=== PATIENT | male | born 1950 | race Caucasian/White ===

== ENCOUNTER → 2018-11-05 | Day surgery (SDC) | payer MEDICARE ==
[2018-10-28 09:33] VITALS: BMI 33.7
[~2018-11-05] MED LIST: BUPIVACAINE (PF) 0.5% 30 ML VIAL SQ ONE; LACTATED RINGERS 1,000 ML IV SCH; LIDOCAINE 1% 20 ML VIAL (10MG/ML) FOR IV START INTRADERMA PRN; LIDOCAINE 1% INJ 10MG/ML (20 ML MDV) ONE; LIDOCAINE 2% INJ 20 MG/ML SQ ONE; MIDAZOLAM 2 MG/2 ML VIAL ONE; PROPOFOL 10 MG/ML 20 ML VIAL IV ONE; ceFAZolin IN SWFI 2 GM/20 ML SYRINGE IVP ONE; fentaNYL (PF) 50 MCG/ML 2 ML AMP ONE
[2018-11-05 06:48] VITALS: TEMP 97.8
[2018-11-05 08:07] VITALS: RESP 18
[2018-11-05 08:35] VITALS: BP 146/87; PULSE 60
--- NOTE | 2018-11-05 13:33 | OP ---
OPERATIVE REPORT DATE OF SURGERY: 11/05/2018 SURGEON: Leland Blake DO. PREOPERATIVE DIAGNOSIS: Left carpal tunnel syndrome. POSTOPERATIVE DIAGNOSIS: Left carpal tunnel syndrome. PROCEDURE: Left carpal tunnel release. DESCRIPTION OF PROCEDURE: The patient was taken to the operative suite where a sedation was administered by the Department of Anesthesia. I then performed a local injection along the line of the incision with a combination of Marcaine and Xylocaine both without epinephrine. The hand was then prepped and draped in the usual manner. The arm was elevated, exsanguinated and the cuff was inflated to 250 mm of mercury. A longitudinal incision was made along the ring finger ray distal to the wrist crease. Dissection was taken through the skin and subcutaneous tissue, initially sharp through the skin and then blunt through the subcutaneous tissue to ensure protection of any potential terminal transverse branches of the palmar cutaneous nerve. The palmar fascia was then incised under direct vision longitudinally exposing the transverse carpal ligament. The transverse carpal ligament also was incised under direct vision. The dissection was then continued proximally beneath the skin under direct vision to release the distal forearm fascia. The median nerve was then reflected free of tenosynovium to ensure no adhesions. The tourniquet was then released. The wound was then irrigated and the skin was closed with a running 5-0 nylon suture. A soft bulky dressing was applied including a volar plaster splint holding the wrist in a neutral slightly extended position. The patient was then taken to the recovery room in satisfactory condition. MMODL / IJN: [id number] /
--- NOTE | 2018-11-05 14:03 | OP ---
OPERATIVE REPORT ADDENDUM: DATE OF SERVICE: 11/05/2018 This is an addendum to the surgical dictation just entered for Mr. José Luis Noriega. This was a redo carpal tunnel. He experienced only partial relief and persistent symptoms preoperatively. A cortisone injection was done, which resulted in improved symptomatology and therefore was indication that a redo carpal tunnel release might be successful. Gross pathology intraoperatively. Some adhesions were noted about the median nerve in the proximal 2/3 of the carpal tunnel. The distal third transverse carpal ligament had reformed and was quite tight. At the completion of the procedure, the median nerve was free of adhesions along its course. The nerve otherwise appeared to be within normal limits. MMODL / IJN: [id number] /
== END ==
LOC: OR 06:26
PROVIDERS: ATTEND Orthopaedic Surgery Hand Surgery
DX: G56.02 Carpal tunnel syndrome, left upper limb (principal); I10 Essential (primary) hypertension; M10.9 Gout, unspecified; Z85.46 Personal history of malignant neoplasm of prostate; Z79.82 Long term (current) use of aspirin; Z79.51 Long term (current) use of inhaled steroids; Z88.2 Allergy status to sulfonamides; Z79.899 Other long term (current) drug therapy; Z88.8 Allergy status to other drugs, medicaments and biological substances
CPT/HCPCS: 64721; J2001 ×2; J2250; J3010; J2704

== ENCOUNTER → 2020-02-12 | Outpatient (CLI) | payer MEDICARE | END | disposition home or self-care (01) | LOC: LABWHC1 07:30 | PROVIDERS: ATTEND Family Medicine | DX: Z20.89 Contact with and (suspected) exposure to other communicable diseases (principal) | CPT/HCPCS: U0003; C9803 ==

== ENCOUNTER → 2022-02-07 | Outpatient (CLI) | payer MEDICARE ==
--- NOTE | 2022-02-07 15:49 | CT ---
EXAMINATION TYPE: CT sinus wo con DATE OF EXAM: 02/07/2022 COMPARISON: None HISTORY: acute sinusitis CT DLP: 660.[address] of the paranasal sinuses was performed in the axial and coronal planes. Bone and soft tissue settings are submitted. The paranasal sinuses demonstrate normal aeration and development. There is mild mucosal thickening involving the maxillary sinuses left greater than right. There is al so opacification of the the ethmoid air cells mild to moderate in degree as well as mild mucosal thic kening of the frontal sinus and right sphenoid sinus. There is obstruction of the left ostiomeatal un it. There is nasal septal deviation from right to left. No bony destructive changes are seen within the field of view. IMPRESSION: Pansinusitis as noted above.
== END | disposition home or self-care (01) ==
LOC: RADCTMAIN 15:12
PROVIDERS: ATTEND Family Medicine
DX: J01.90 Acute sinusitis, unspecified (principal)
CPT/HCPCS: 70486

== ENCOUNTER → 2022-12-19 | Outpatient (CLI) | payer MEDICARE | END | disposition home or self-care (01) | LOC: LABWHC1 12:35 | PROVIDERS: ATTEND Family Medicine | DX: I10 Essential (primary) hypertension (principal); I45.10 Unspecified right bundle-branch block; I49.3 Ventricular premature depolarization; R94.31 Abnormal electrocardiogram [ECG] [EKG] | CPT/HCPCS: 36415; 93005 ==

== ENCOUNTER → 2023-07-02 | Outpatient (CLI) | payer MEDICARE ==
--- NOTE | 2023-07-02 12:51 | CT ---
EXAMINATION TYPE: CT iac wo con DATE OF EXAM: 07/02/2023 COMPARISON: NONE HISTORY: Sinus surgery in February- hearing loss since surgery CT DLP: 142.7 mGycm. Automated Exposure Control for Dose Reduction was Utilized. TECHNIQUE: CT scan of internal auditory canal is performed without contrast, thin cut axial images ar e obtained, coronal reformatted images are also reviewed. FINDINGS: The external auditory canals are patent bilaterally. Mastoid air cells show no evidence of abnormal opacification bilaterally. The middle ear ossicles are symmetric and unremarkable. There is no evidence of suspicious surroundi ng soft tissue density to suggest cholesteatoma. The scutum is preserved bilaterally. The cochlea and the semicircular canals are symmetric and unremarkable. Satisfactory superior bony ov ergrowth of the superior semicircular canal. No dehiscence is seen. Vestibular aqueduct and internal carotid canal appear unremarkable. Temporomandibular joints are maintained bilaterally. Mucosal thickening of the right sphenoid sinus and mucosal thickening and opacity with air-fluid leve l in the left maxillary sinus. Partial opacification of the posterior ethmoid sinuses bilaterally and the inferior frontal sinuses. Globes are intact bilaterally. Visualized portion brain parenchyma is felt within normal limits. IMPRESSION: No significant abnormality seen to account for patient's symptoms of hearing loss.
== END | disposition home or self-care (01) ==
LOC: RADCTMAIN 12:25
PROVIDERS: ATTEND Otolaryngology
DX: H91.90 Unspecified hearing loss, unspecified ear (principal)
CPT/HCPCS: 70480

== ENCOUNTER → 2024-03-21 | Outpatient (CLI) | payer MEDICARE | END | disposition home or self-care (01) | LOC: LABPRL 08:20 | PROVIDERS: ATTEND Family Medicine | DX: C61 Malignant neoplasm of prostate (principal) | CPT/HCPCS: 84153 ==

== ENCOUNTER → 2024-07-07 | Outpatient (CLI) | payer MEDICARE | END | disposition home or self-care (01) | LOC: LABWHC1 14:07 | PROVIDERS: ATTEND Urology | DX: C61 Malignant neoplasm of prostate (principal) | CPT/HCPCS: 36415; 84153 ==